=== PATIENT | female | born 1960 | race Caucasian/White ===

== ENCOUNTER 2016-12-15 09:25 | Outpatient (CLI) | payer BC ==
[2016-12-15] MEDS ORDERED: BARIUM SULFATE 176 GM BOTTLE PO ONE (10:58)
[2016-12-15] MEDS ORDERED: BARIUM SULFATE 135 ML BOTTLE PO ONE (10:58)
== END 2016-12-15 09:26 | disposition home or self-care (01) ==
DX: K44.9 Diaphragmatic hernia without obstruction or gangrene (principal); K21.9 Gastro-esophageal reflux disease without esophagitis
CPT/HCPCS: 74246; A9270

== ENCOUNTER 2018-05-31 08:17 | Outpatient (CLI) | payer OTHER ==
[2018-05-31 10:24] LABS: BASOPHILS % (AUTO) 0.4 %; EOSINOPHILS # (AUTO) 0.1 10^3/uL (0.0-0.7); EOSINOPHILS % (AUTO) 3.2 %; HGB - HEMOGLOBIN 14.5 g/dL (12.0-16.0); MEAN CORPUSCULAR HEMOGLOBIN 33.6 pg (27.0-31.0); MEAN CORPUSCULAR HGB CONC 34.4 g/dL (32.0-36.0); MEAN CORPUSCULAR VOLUME 97.8 fL (81.0-99.0); MEAN PLATELET VOLUME 8.5 fL (7.9-10.8); MONOCYTES # (AUTO) 0.4 10^3/uL (0.0-1.0); MONOCYTES % (AUTO) 9.6 %; NEUTROPHILS # (AUTO) 2.6 10^3/uL (1.5-6.6); NEUTROPHILS % (AUTO) 62.8 %; PLT - PLATELET COUNT 201 10^3/uL (130-450); RED BLOOD COUNT 4.31 10^6/uL (4.20-5.40); RED CELL DISTRIBUTION WIDTH 13.2 % (12.0-15.0); WHITE BLOOD COUNT 4.1 x10^3/uL (4.8-10.8)
[2018-05-31 10:52] LABS: ALBUMIN 4.1 g/dL (3.2-5.5); ALBUMIN/GLOBULIN RATIO 1.4 (1.0-2.2); ALKALINE PHOSPHATASE 79 IU/L (42-121); ALT ALANINE AMINOTRANSFERASE 34 IU/L (10-60); AST ASPARTATE AMINOTRANSFERASE 29 IU/L (10-42); BUN - BLOOD UREA NITROGEN 14 mg/dL (6-20); CALCIUM 8.9 mg/dL (8.5-10.3); CARBON DIOXIDE - CO2 28 mmol/L (21-32); CHLORIDE 100 mmol/L (101-111); CHOLESTEROL 196 mg/dL; CREATININE 0.7 mg/dL (0.4-1.0); GFR - MDRD 86 (>89); GLUCOSE 109 mg/dL (70-100); HDL CHOLESTEROL 65 mg/dL; LDL CHOLESTEROL,CALCULATED 107 mg/dL; LDL/HDL RATIO 1.6 (<4.4); SODIUM 136 mmol/L (135-145); TOTAL PROTEIN 7.1 g/dL (6.7-8.2); VLDL CHOLESTEROL 24 mg/dL
== END 2018-05-31 08:18 | disposition home or self-care (01) ==
LOC: LAB.F 08:17
PROVIDERS: ATTEND Nurse Practitioner Family
DX: Z00.00 Encounter for general adult medical examination without abnormal findings (principal); E55.9 Vitamin D deficiency, unspecified; E78.5 Hyperlipidemia, unspecified
CPT/HCPCS: 36415; 80053; 80061; 82306; 82728; 83721; 85025

== ENCOUNTER 2018-06-05 09:10 | Outpatient (CLI) | payer OTHER ==
[2018-06-05 18:26] LABS: T4 (THYROXINE) 8.59 ug/dL (6.09-12.23)
[2018-06-05 18:29] LABS: THYROID STIMULATING HORMONE 2.01 uIU/mL (0.34-5.60)
[2018-06-05 18:31] LABS: FREE T4 (FREE THYROXINE) 0.73 ng/dL (0.58-1.64)
[2018-06-05 18:56] LABS: FOLLICLE STIMULATING HORMONE 132.39 mIU/mL
== END 2018-06-05 09:11 | disposition home or self-care (01) ==
LOC: LAB.F 09:10
PROVIDERS: ATTEND Nurse Practitioner Family
DX: N95.1 Menopausal and female climacteric states (principal)
CPT/HCPCS: 36415; 83001; 84436; 84439; 84443; 84481

== ENCOUNTER 2018-07-19 13:28 | Outpatient (CLI) | payer OTHER ==
--- NOTE | 2018-07-20 09:22 | Mammography Report ---
Reason: SCREENING MAMMOGRAM Procedure Date: 07/19/2018 Accession Number: [id number] / [id number] Procedure: MGS - Screening Mammo Dig w/Implants CPT Code: FULL RESULT: EXAM: Screening Mammo Dig w/Implants DATE: 07/19/2018 1:49 PM CLINICAL HISTORY: SCREENING MAMMOGRAM TECHNIQUE: Bilateral digital CC and MLO projections with additional plan displaced views. COMPARISON: 11/28/2014 FINDINGS: The breast tissue is heterogeneously dense. There is no dominant mass, architectural distortion, skin thickening, suspicious microcalcifications, or significant interval change. Bilateral subpectoral saline implants are stable. IMPRESSION: 1. Negative examination 2. Suggest follow-up routine screening in 12 months. 3. BI-RADS 1: Negative
== END 2018-07-19 13:29 | disposition home or self-care (01) ==
LOC: DI.S 13:28
PROVIDERS: ATTEND Nurse Practitioner Family
DX: Z12.31 Encounter for screening mammogram for malignant neoplasm of breast (principal)
CPT/HCPCS: 77067

== ENCOUNTER 2018-10-26 08:50 | Outpatient (CLI) | payer OTHER ==
--- NOTE | 2018-10-26 14:50 | Ultrasound Report ---
Reason: CHRONIC PAIN IN CENTRAL ABDOMEN Procedure Date: 10/26/2018 Accession Number: [id number] / [id number] Procedure: US - Abdomen Complete CPT Code: FULL RESULT: EXAM: ABDOMEN ULTRASOUND EXAM DATE: 10/26/2018 09:56 AM. CLINICAL HISTORY: Chronic pain in central abdomen. COMPARISON: None. TECHNIQUE: Real-time scanning was performed with static images obtained. FINDINGS: Liver: Liver background parenchyma is heterogeneous and echogenic and demonstrates areas of regional hypoechogenicity. Some of these areas appear geographic suggestive of focal fatty sparing. One area near the left hepatic dome measuring 1.7 x 1.4 x 1.1 cm is well circumscribed and demonstrates apparent mass effect. The right lobe of the liver measures at least 12.4 cm. Main portal vein flow: Hepatopetal. Gallbladder: Normal. No stones, wall thickening, or sonographic Abdul's sign. Biliary System: Common bile duct measures 5 mm. No intrahepatic or extrahepatic ductal dilatation. Pancreas: Visualized portion is unremarkable. Kidneys: Right: 8.5 cm longitudinally. Normal. No contour-deforming mass, stones, or hydronephrosis. Left: 9.6 cm longitudinally. There is a nonobstructing 0.5 cm mid pole calculus. No contour-deforming mass, or hydronephrosis. Spleen: 9.6 cm. Normal in size and echotexture. Aorta and Inferior Vena Cava: Unremarkable. Other: None. IMPRESSION: Limited sensitivity for masses due to hepatic steatosis. Concern for possible 1.7 cm left hepatic mass. Recommend MRI or CT liver mass protocol. RADIA
== END 2018-10-26 08:51 | disposition home or self-care (01) ==
LOC: DI 08:50
PROVIDERS: ATTEND Nurse Practitioner Family
DX: K76.0 Fatty (change of) liver, not elsewhere classified (principal); R10.9 Unspecified abdominal pain
CPT/HCPCS: 76700

== ENCOUNTER 2018-11-15 08:52 | Outpatient (CLI) | payer OTHER ==
[2018-11-15] MEDS ORDERED: IOVERSOL 320 100 ML VIAL IVP ONE ×2 (09:18→14:31)
--- NOTE | 2018-11-15 12:20 | CT Report ---
Reason: OTHER SPECIFIED DISEASES OF LIVER,UNSPECIFIED ABDO Procedure Date: 11/15/2018 Accession Number: [id number] / [id number] Procedure: CT - Abdomen W/ CPT Code: FULL RESULT: EXAM: CT ABDOMEN EXAM DATE: 11/15/2018 09:38 AM. CLINICAL HISTORY: OTHER SPECIFIED DISEASES OF LIVER,UNSPECIFIED ABDO. PAIN. COMPARISON: None. TECHNIQUE: Multiphasic CT imaging was performed through the abdomen. IV contrast: OPTI 320 90mL Enteric contrast: No. Reconstruction: Coronal and sagittal. In accordance with CT protocol optimization, one or more of the following dose reduction techniques were utilized for this exam: automated exposure control, adjustment of mA and/or KV based on patient size, or use of iterative reconstructive technique. FINDINGS: Lung Bases: Small amount of atelectasis/scarring. No suspicious mass or effusions. Liver: Mildly low attenuation appearance diffusely. No arterially enhancing lesions are visualized. Subcentimeter hypoattenuating lesion within the left lobe anteriorly subcapsular measuring approximate 9 mm (image 11, series 3). This demonstrates no definitive enhancement on venous or delayed imaging. A second hypoattenuating subcentimeter lesion is present within the right lobe inferiorly and posteriorly measuring approximately 9 mm (image 25, series 3). This demonstrates no definitive arterial or venous enhancement, although possible small amount of peripheral discontinuous nodular enhancement upon delayed imaging. No other liver mass identified. Gallbladder/Bile Ducts: Unremarkable. Spleen: Normal. Pancreas: Normal. Adrenal Glands: Normal. Kidneys: Normal. No masses or hydronephrosis. Peritoneal Cavity/Bowel: No evidence of bowel obstruction. No free air. No discrete collection. No bulky adenopathy. Small amount of fatty change within the visualized colon. Vasculature: No aneurysms or other significant abnormality. Bones: No significant abnormality. Other: None. IMPRESSION: 1. Mild diffuse hepatic steatosis. 2. Two, subcentimeter hypoattenuating lesions within the liver, as described. These are too small to accurately characterize, although appearance is suspicious for small cysts or hemangioma. No other suspicious masses are visualized. 3. Partially visualized colon with mild amount of fatty change within the colonic wall. This may represent chronic change associated with inflammatory bowel disease or may be related to body habitus. RADIA
== END 2018-11-15 08:53 | disposition home or self-care (01) ==
LOC: DI 08:52
PROVIDERS: ATTEND Nurse Practitioner Family
DX: K76.0 Fatty (change of) liver, not elsewhere classified (principal); K76.9 Liver disease, unspecified; R10.9 Unspecified abdominal pain
CPT/HCPCS: 74160; Q9967

== ENCOUNTER 2019-10-15 14:28 | Outpatient (CLI) | payer OTHER ==
[2019-10-15 17:10] LABS: BASOPHILS % (AUTO) 0.3 %; EOSINOPHILS # (AUTO) 0.2 10^3/uL (0.0-0.7); EOSINOPHILS % (AUTO) 2.1 %; HGB - HEMOGLOBIN 14.6 g/dL (12.0-16.0); LYMPHOCYTES # (AUTO) 1.6 10^3/uL (1.5-3.5); LYMPHOCYTES % (AUTO) 20.9 %; MEAN CORPUSCULAR HEMOGLOBIN 32.4 pg (27.0-31.0); MEAN CORPUSCULAR HGB CONC 32.6 g/dL (32.0-36.0); MEAN CORPUSCULAR VOLUME 99.6 fL (81.0-99.0); MEAN PLATELET VOLUME 10.3 fL (7.9-10.8); MONOCYTES # (AUTO) 0.5 10^3/uL (0.0-1.0); MONOCYTES % (AUTO) 6.6 %; NEUTROPHILS # (AUTO) 5.2 10^3/uL (1.5-6.6); NEUTROPHILS % (AUTO) 69.6 %; PLT - PLATELET COUNT 227 10^3/uL (130-450); RED CELL DISTRIBUTION WIDTH 12.4 % (12.0-15.0); WHITE BLOOD COUNT 7.5 x10^3/uL (4.8-10.8)
[2019-10-15 17:23] LABS: ALBUMIN 4.3 g/dL (3.2-5.5); ALBUMIN/GLOBULIN RATIO 1.4 (1.0-2.2); BILIRUBIN,TOTAL 0.4 mg/dL (0.2-1.0); CALCIUM 8.3 mg/dL (8.5-10.3); CREATININE 0.8 mg/dL (0.4-1.0); CRP HIGH SENSITIVITY 5.5 mg/L; TOTAL PROTEIN 7.4 g/dL (6.7-8.2)
[2019-10-15 17:35] LABS: THYROID STIMULATING HORMONE 1.48 uIU/mL (0.34-5.60)
== END 2019-10-15 14:29 | disposition home or self-care (01) ==
LOC: LAB.S 14:28
PROVIDERS: ATTEND Nurse Practitioner Family
DX: E55.9 Vitamin D deficiency, unspecified (principal); E78.5 Hyperlipidemia, unspecified; R53.83 Other fatigue
CPT/HCPCS: 36415; 80053; 84436; 84443; 84481; 85025; 85651; 86141; 86376; 86800

== ENCOUNTER 2019-12-05 14:11 | Outpatient (CLI) | payer OTHER ==
[2019-12-05 17:25] LABS: BASOPHILS % (AUTO) 0.4 %; EOSINOPHILS # (AUTO) 0.1 10^3/uL (0.0-0.7); HGB - HEMOGLOBIN 14.6 g/dL (12.0-16.0); LYMPHOCYTES # (AUTO) 1.3 10^3/uL (1.5-3.5); LYMPHOCYTES % (AUTO) 23.8 %; MEAN CORPUSCULAR HEMOGLOBIN 33.5 pg (27.0-31.0); MEAN CORPUSCULAR HGB CONC 33.4 g/dL (32.0-36.0); MEAN CORPUSCULAR VOLUME 100.2 fL (81.0-99.0); MEAN PLATELET VOLUME 10.3 fL (7.9-10.8); MONOCYTES # (AUTO) 0.5 10^3/uL (0.0-1.0); MONOCYTES % (AUTO) 8.5 %; NEUTROPHILS # (AUTO) 3.7 10^3/uL (1.5-6.6); NEUTROPHILS % (AUTO) 64.9 %; PLT - PLATELET COUNT 238 10^3/uL (130-450); RED BLOOD COUNT 4.36 10^6/uL (4.20-5.40); WHITE BLOOD COUNT 5.6 x10^3/uL (4.8-10.8)
[2019-12-05 17:43] LABS: ALBUMIN 4.3 g/dL (3.2-5.5); ALBUMIN/GLOBULIN RATIO 1.4 (1.0-2.2); BILIRUBIN,TOTAL 0.6 mg/dL (0.2-1.0); CALCIUM 8.9 mg/dL (8.5-10.3); CREATININE 0.7 mg/dL (0.4-1.0); CRP HIGH SENSITIVITY 13.3 mg/L; TOTAL PROTEIN 7.4 g/dL (6.7-8.2)
[2019-12-05 17:56] LABS: T4 (THYROXINE) 8.37 ug/dL (6.09-12.23)
[2019-12-05 17:59] LABS: THYROID STIMULATING HORMONE 1.41 uIU/mL (0.34-5.60)
[2019-12-05 18:01] LABS: FREE T4 (FREE THYROXINE) 0.84 ng/dL (0.58-1.64)
[2019-12-08 16:24] LABS: INTRINSIC FACTOR BLOCKING AB NEGATIVE
[2019-12-09 16:45] LABS: METHYLMALONIC ACID 199 nmol/L (87-318)
== END 2019-12-05 14:12 | disposition home or self-care (01) ==
LOC: LAB.S 14:11
PROVIDERS: ATTEND Nurse Practitioner Family
DX: E87.6 Hypokalemia (principal); E83.51 Hypocalcemia; Z79.899 Other long term (current) drug therapy; R53.83 Other fatigue; E03.2 Hypothyroidism due to medicaments and other exogenous substances
CPT/HCPCS: 36415; 80053; 82607; 83921; 84436; 84439; 84443; 84481; 85025; 86141; 86340; 86376

== ENCOUNTER 2020-01-23 11:54 | Outpatient (CLI) | payer OTHER ==
--- NOTE | 2020-01-23 15:53 | XRAY Report ---
Reason: L KNEE INNER JOINT PX AND SWELLING Procedure Date: 01/23/2020 Accession Number: [id number] / [id number] Procedure: XR - Knee 3 View LT CPT Code: Final Report FULL RESULT: EXAM: LEFT KNEE RADIOGRAPHY EXAM DATE: 01/23/2020 12:10 PM. CLINICAL HISTORY: Left knee inner joint pain and swelling. COMPARISON: None. TECHNIQUE: 3 views. FINDINGS: Mild narrowing of the knee joint space. Mild osteophytic spurring at the articulations of the tibial plateau with the femoral condyles. Borderline high riding patella, with moderate narrowing of the patellofemoral articulation. Osteophytic spurring at the cephalad aspect of the patella. No significant suprapatellar joint effusion. No fracture or subluxation identified. IMPRESSION: Mild to moderate degenerative changes at the left knee. RADIA
== END 2020-01-23 11:55 | disposition home or self-care (01) ==
LOC: DI 11:54
PROVIDERS: ATTEND Nurse Practitioner Family
DX: M17.12 Unilateral primary osteoarthritis, left knee (principal)

== ENCOUNTER 2020-04-16 16:50 | Outpatient (CLI) | payer OTHER ==
[2020-04-16 17:25] LABS: BASOPHILS % (AUTO) 0.3 %; EOSINOPHILS # (AUTO) 0.1 10^3/uL (0.0-0.7); EOSINOPHILS % (AUTO) 1.4 %; HGB - HEMOGLOBIN 13.9 g/dL (12.0-16.0); LYMPHOCYTES # (AUTO) 1.2 10^3/uL (1.5-3.5); LYMPHOCYTES % (AUTO) 17.5 %; MEAN CORPUSCULAR HEMOGLOBIN 35.3 pg (27.0-31.0); MEAN CORPUSCULAR HGB CONC 34.4 g/dL (32.0-36.0); MEAN CORPUSCULAR VOLUME 102.5 fL (81.0-99.0); MEAN PLATELET VOLUME 9.3 fL (7.9-10.8); MONOCYTES # (AUTO) 0.6 10^3/uL (0.0-1.0); MONOCYTES % (AUTO) 8.2 %; PLT - PLATELET COUNT 199 10^3/uL (130-450); RED BLOOD COUNT 3.94 10^6/uL (4.20-5.40); RED CELL DISTRIBUTION WIDTH 13.1 % (12.0-15.0); WHITE BLOOD COUNT 6.9 x10^3/uL (4.8-10.8)
[2020-04-16 17:35] LABS: ALBUMIN 4.3 g/dL (3.2-5.5); ALBUMIN/GLOBULIN RATIO 1.3 (1.0-2.2); BILIRUBIN,TOTAL 0.7 mg/dL (0.2-1.0); CALCIUM 9.1 mg/dL (8.5-10.3); CREATININE 0.9 mg/dL (0.4-1.0); TOTAL PROTEIN 7.5 g/dL (6.7-8.2)
== END 2020-04-16 16:51 | disposition home or self-care (01) ==
LOC: LAB 16:50
PROVIDERS: ATTEND Nurse Practitioner Family
DX: R22.43 Localized swelling, mass and lump, lower limb, bilateral (principal)
CPT/HCPCS: 36415; 80053; 85025; 85379

== ENCOUNTER 2020-04-16 18:44 | Emergency (ER) | payer OTHER ==
--- NOTE | 2020-04-16 19:19 | ED Physician Documentation ---
History of Present Illness - Stated complaint Stated Complaint: ABNORMAL LABS - Chief complaint Chief Complaint: Ext Problem - History obtained from History obtained from: Patient - History of Present Illness Timing: How many days ago (3) Pain level now: 1 Improved by: rest Worsened by: palpation - Additonal information Additional information: had painful spasm left calf 3 days ago, with subsequent swelling that evening and progressing since then. She has swelling distal to left knee with calf pain/tenderness. Denies chest pain/dyspnea. She saw her accupuncturist who voiced concern regarding the swelling of the left calf, and thus patient then had outpatient lab tests ordered by PMD. PMD's office contacted patient this evening and directed her to come to ED due to elevated d-dimer. Review of Systems Constitutional: denies: Fever, Chills, Sweats Cardiac: reports: Pedal edema. denies: Chest pain / pressure, Palpitations, Calf pain Respiratory: reports: Reviewed and negative GI: reports: Reviewed and negative Musculoskeletal: reports: Extremity pain, Extremity swelling PD PAST MEDICAL HISTORY - Past Medical History Past Medical History: No - Past Surgical History Past Surgical History: No - Social History Does the pt smoke?: No PD ED PE NORMAL - Vitals Vital signs reviewed: Yes - General General: Alert and oriented X 3, No acute distress, Well developed/nourished - Cardiac Cardiac: RRR, No murmur, No gallop, No rub - Respiratory Respiratory: No respiratory distress, Clear bilaterally - Derm Derm: Normal color, Warm and dry, No rash - Extremities Extremities: Normal ROM s pain PD ED PE EXPANDED - Extremities Extremities: Tenderness ((+) Mychal's sign), Pedal Pulses Present GABI LE visual: 1 - swelling (1+ distal to knee) Results - Vitals Vitals: Vital Signs - 24 hr 04/16/20 04/16/20 18:52 21:08 Temperature 36.8 C Heart Rate 102 H 67 Respiratory 18 14 Rate Blood Pressure 183/88 H 142/78 H O2 Saturation 98 98 Oxygen O2 Source Room air - Labs Labs: Laboratory Tests 04/16/20 19:42 PT 11.2 INR 1.0 APTT 30.8 - Rads (name of study) LLE US Radiology: Prelim report reviewed, See rad report CT chest w/ IV contrast (PE study) Radiology: Prelim report reviewed, See rad report PD MEDICAL DECISION MAKING - ED course Complexity details: reviewed results, re-evaluated patient, considered differential, d/w patient Departure - Departure Disposition: 01 Home, Self Care Clinical Impression: Peripheral edema Condition: Good Instructions: ED Cyst Awad, ED Leg Swelling Unilateral Follow-Up: Cl Burton ARNP [Primary Care Provider] - Discharge Date/Time: 04/16/20 21:42
[2020-04-16] MEDS ORDERED: IOVERSOL 320 100 ML VIAL IVP ONE ×2 (19:50→20:21)
[2020-04-16 19:56] LABS: PT - PROTHROMBIN TIME 11.2 secs (9.9-12.6)
[2020-04-16 20:03] LABS: PARTIAL THROMBOPLASTIN TIME 30.8 secs (24.9-33.3)
--- NOTE | 2020-04-16 20:41 | CT Report ---
PROCEDURE: ANGIO CHEST W/WO INDICATIONS: LLE swelling CONTRAST: IV CONTRAST: Optiray 320 ml: 48 PO CONTRAST: *NO PO CONTRAST TECHNIQUE: After the administration of intravenous contrast, 2 mm thick sections acquired from the pulmonary api brennon to the posterior costophrenic angles. 3-dimensional maximum intensity projection (MIP) coronal a nd sagittal reformats were then acquired through the thorax. For radiation dose reduction, the follow ing was used: automated exposure control, adjustment of mA and/or kV according to patient size. COMPARISON: None FINDINGS: Image quality: Good. Pulmonary arteries: Pulmonary arteries are normal in size, and demonstrate no intraluminal filling d efects to suggest central pulmonary embolism. Lungs and pleura: No focal consolidation. Subpleural nodule in the left lower lobe on series 5 image 62 measuring approximately 5 mm. Additional subpleural left lower lobe nodule on series 5 image 96 me asuring 2 mm. No pleural effusions or pneumothorax. Central and peripheral airways are patent. Mediastinum: Heart size is normal, without pericardial effusion. No mediastinal or hilar adenopathy . Thoracic aorta is normal in caliber and enhancement. Esophagus is normal in caliber, without hiat al hernia. Bones and chest wall: No suspicious bony lesions. Ribs and thoracic spine appear intact throughout. The thyroid is normal. No axillary or supraclavicular adenopathy. Abdomen: Visualized upper abdominal solid organs appear normal in the early arterial phase of enhanc ement. IMPRESSION: No findings of pulmonary embolus or other acute finding in the chest. Reviewed by: Lam Raymundo MD on 04/16/2020 8:39 PM PDT Approved by: Lam Raymundo MD on 04/16/2020 8:39 PM PDT Station ID: [id number]
[2020-04-16 21:10] VITALS: BP 142/78
--- NOTE | 2020-04-16 21:13 | Ultrasound Report ---
PROCEDURE: Duplex Ext Veins Left INDICATIONS: LLE swelling TECHNIQUE: Real-time imaging, as well as color and pulse Doppler interrogation, were performed of the lower extr emity deep veins from the inguinal ligament to the popliteal fossa. COMPARISON: None. FINDINGS: The deep veins are normally compressible, and free of intraluminal thrombus. Color and pu lse Doppler demonstrate normal phasic intraluminal flow. There is normal augmentation response to di stal compression maneuver. Complex fluid collection in the popliteal fossa medially extending to the mid calf. IMPRESSION: No evidence of deep venous thrombosis. Complex fluid collection in the medial popliteal fossa. This would be consistent with a Awad's cyst. If confirmation needed, MRI would be recommended . Reviewed by: Lam Raymundo MD on 04/16/2020 9:11 PM PDT Approved by: Lam Raymundo MD on 04/16/2020 9:11 PM PDT Station ID: [id number]
== END 2020-04-16 21:42 | disposition home or self-care (01) ==
LOC: ED 18:44
DX: R60.0 Localized edema (principal); M79.662 Pain in left lower leg; R22.43 Localized swelling, mass and lump, lower limb, bilateral
CPT/HCPCS: 36415; 71275; 80053; 85025; 85379; 85610; 85730; 93971; 99284; Q9967

== ENCOUNTER 2021-07-22 08:00 | Outpatient (CLI) | payer OTHER ==
[2021-07-22 19:21] LABS: H. PYLORIS ANTIGEN STL NEGATIVE (Negative)
== END 2021-07-22 23:59 | disposition home or self-care (01) ==
LOC: LAB.R 08:00
PROVIDERS: ATTEND Surgery
DX: K21.9 Gastro-esophageal reflux disease without esophagitis (principal); Z87.19 Personal history of other diseases of the digestive system
CPT/HCPCS: 87338

== ENCOUNTER 2021-08-11 09:20 | Outpatient (CLI) | payer BC ==
[2021-08-11 09:39] LABS: BASOPHILS % (AUTO) 0.4 %; EOSINOPHILS # (AUTO) 0.1 10^3/uL (0.0-0.7); HGB - HEMOGLOBIN 15.1 g/dL (12.0-16.0); LYMPHOCYTES % (AUTO) 18.7 %; MEAN CORPUSCULAR HEMOGLOBIN 34.9 pg (27.0-31.0); MEAN CORPUSCULAR HGB CONC 33.6 g/dL (32.0-36.0); MEAN CORPUSCULAR VOLUME 103.9 fL (81.0-99.0); MEAN PLATELET VOLUME 9.8 fL (7.9-10.8); MONOCYTES # (AUTO) 0.5 10^3/uL (0.0-1.0); MONOCYTES % (AUTO) 8.3 %; NEUTROPHILS # (AUTO) 3.9 10^3/uL (1.5-6.6); NEUTROPHILS % (AUTO) 70.2 %; PLT - PLATELET COUNT 220 10^3/uL (130-450); RED BLOOD COUNT 4.33 10^6/uL (4.20-5.40); RED CELL DISTRIBUTION WIDTH 12.5 % (12.0-15.0); WHITE BLOOD COUNT 5.6 x10^3/uL (4.8-10.8)
[2021-08-11 10:05] LABS: ALBUMIN 4.2 g/dL (3.2-5.5); ALBUMIN/GLOBULIN RATIO 1.4 (1.0-2.2); ALKALINE PHOSPHATASE 65 IU/L (42-121); ALT ALANINE AMINOTRANSFERASE 30 IU/L (10-60); AST ASPARTATE AMINOTRANSFERASE 22 IU/L (10-42); BILIRUBIN,TOTAL 0.8 mg/dL (0.2-1.0); BUN - BLOOD UREA NITROGEN 21 mg/dL (6-20); CALCIUM 9.2 mg/dL (8.5-10.3); CARBON DIOXIDE - CO2 30 mmol/L (21-32); CHLORIDE 102 mmol/L (101-111); CHOL/HDL RATIO 2.9 (<4.4); CHOLESTEROL 203 mg/dL; CREATININE 0.8 mg/dL (0.4-1.0); GFR - MDRD 73 (>89); GLUCOSE 112 mg/dL (70-100); HDL CHOLESTEROL 71 mg/dL; LDL CHOLESTEROL,CALCULATED 116 mg/dL; LDL/HDL RATIO 1.6 (<4.4); POTASSIUM 4.3 mmol/L (3.5-5.0); SODIUM 141 mmol/L (135-145); TOTAL PROTEIN 7.1 g/dL (6.7-8.2); TRIGLYCERIDES 80 mg/dL; VLDL CHOLESTEROL 16 mg/dL
[2021-08-11 10:16] LABS: THYROID STIMULATING HORMONE 2.07 uIU/mL (0.34-5.60)
== END 2021-08-11 09:21 | disposition home or self-care (01) ==
LOC: LAB 09:20
PROVIDERS: ATTEND Registered Nurse
DX: N95.9 Unspecified menopausal and perimenopausal disorder (principal); K21.9 Gastro-esophageal reflux disease without esophagitis; R10.13 Epigastric pain; J45.909 Unspecified asthma, uncomplicated; K57.30 Diverticulosis of large intestine without perforation or abscess without bleeding
CPT/HCPCS: 36415; 80053; 80061; 82306; 83721; 84443; 85025

== ENCOUNTER 2022-02-17 11:30 | Outpatient (CLI) | payer BC ==
--- NOTE | 2022-02-17 12:53 | XRAY Report ---
PROCEDURE: Sacrum/Coccyx INDICATIONS: XRAY TECHNIQUE: 3 views of the sacrum and coccyx acquired. COMPARISON: None FINDINGS: Bones: Nondisplaced fracture of S5. No suspicious bony lesions. Soft tissues: Visualized bowel gas pattern is normal. No suspicious soft tissue densities. IMPRESSION: Nondisplaced fracture of S5. Reviewed by: Giovanny Castillo on 02/17/2022 12:52 PM PDT Approved by: Giovanny Castillo on 02/17/2022 12:52 PM PDT Station ID: [id number]
== END 2022-02-17 23:59 | disposition home or self-care (01) ==
LOC: CANPRECLI → DI.S 11:30
PROVIDERS: ATTEND Chiropractor Neurology
DX: S32.10XA Unspecified fracture of sacrum, initial encounter for closed fracture (principal)

== ENCOUNTER 2023-12-20 18:57 | Outpatient (CLI) | payer BC ==
[2023-12-20 19:33] LABS: BASOPHILS % (AUTO) 0.4 %; EOSINOPHILS % (AUTO) 0.7 %; HCT - HEMATOCRIT 40.9 % (37.0-47.0); HGB - HEMOGLOBIN 13.5 g/dL (12.0-16.0); LYMPHOCYTES # (AUTO) 0.9 10^3/uL (1.5-3.5); LYMPHOCYTES % (AUTO) 15.7 %; MEAN CORPUSCULAR HEMOGLOBIN 33.5 pg (27.0-31.0); MEAN CORPUSCULAR VOLUME 101.5 fL (81.0-99.0); MEAN PLATELET VOLUME 9.8 fL (7.9-10.8); MONOCYTES # (AUTO) 0.4 10^3/uL (0.0-1.0); MONOCYTES % (AUTO) 6.2 %; NEUTROPHILS # (AUTO) 4.4 10^3/uL (1.5-6.6); NEUTROPHILS % (AUTO) 76.6 %; PLT - PLATELET COUNT 210 10^3/uL (130-450); RED BLOOD COUNT 4.03 10^6/uL (4.20-5.40); WHITE BLOOD COUNT 5.7 x10^3/uL (4.8-10.8)
[2023-12-20 19:53] LABS: ALBUMIN 4.4 g/dL (3.2-5.5); ALBUMIN/GLOBULIN RATIO 1.8 (1.0-2.2); BILIRUBIN,TOTAL 0.3 mg/dL (0.2-1.0); CALCIUM 9.8 mg/dL (8.5-10.3); CREATININE 0.8 mg/dL (0.6-1.3); POTASSIUM 4.2 mmol/L (3.5-4.5); TOTAL PROTEIN 6.9 g/dL (6.4-8.9)
[2023-12-20 20:14] LABS: THYROID STIMULATING HORMONE 0.82 uIU/mL (0.34-5.60)
[2023-12-20 20:30] LABS: ESTIMATED AVERAGE GLUCOSE 108 mg/dL (70-100); HEMOGLOBIN A1c% 5.4 % (4.27-6.07)
== END 2023-12-20 18:58 | disposition home or self-care (01) ==
LOC: LAB 18:57
PROVIDERS: ATTEND Registered Nurse
DX: R03.0 Elevated blood-pressure reading, without diagnosis of hypertension (principal); R42 Dizziness and giddiness; R23.2 Flushing
CPT/HCPCS: 36415; 80053; 82088; 83036; 84244; 84443; 85025; 87077; 87086

== ENCOUNTER 2023-12-22 07:00 | Outpatient (CLI) | payer BC | END 2023-12-22 23:59 | disposition home or self-care (01) | LOC: LAB.S 07:00 | PROVIDERS: ATTEND Registered Nurse | DX: R03.0 Elevated blood-pressure reading, without diagnosis of hypertension (principal); R42 Dizziness and giddiness; R23.2 Flushing | CPT/HCPCS: 81599; 82384; 82570; 83835 ==

== ENCOUNTER 2023-12-28 11:52 | Outpatient (CLI) | payer BC | END 2023-12-28 11:53 | disposition home or self-care (01) | LOC: LAB.R 11:52 | PROVIDERS: ATTEND Registered Nurse | DX: R03.0 Elevated blood-pressure reading, without diagnosis of hypertension (principal); R42 Dizziness and giddiness; R23.2 Flushing | CPT/HCPCS: 83497 ==

== ENCOUNTER 2024-01-02 09:39 | Outpatient (CLI) | payer BC ==
--- NOTE | 2024-01-03 10:09 | Mammography Report ---
BILATERAL DIGITAL SCREENING MAMMOGRAM 3D/2D WITH AUGMENTATION: 01/02/2024 CLINICAL: Routine screening. Family history of breast cancer. Comparison is made to exams dated: 07/19/2018 mammogram and 11/28/2014 mammogram - [facility]. Both breasts are heterogeneously dense, which may obscure small masses (category c / 51-75% glandular tissue). Bilateral retropectoral saline implants are intact. There is a possible focal asymmetry in the right breast at 10 o'clock middle depth. No other significant masses, calcifications, or other findings are seen in either breast. IMPRESSION: INCOMPLETE: NEEDS ADDITIONAL IMAGING EVALUATION The possible focal asymmetry in the right breast is indeterminate. Additional views with possible ul trasound are recommended. Based on the Tyrer Cuzick model (a risk assessment model) the patient's lifetime risk is 19.4% and he r 10 year risk is 8.7%. According to the ACR, ACS, and NCCN guidelines, an annual breast MRI exam sidra ng with mammogram is recommended if the patient's lifetime risk is 20% or greater. This exam was interpreted at Station ID: [id number]. NOTE: For mammograms, a report in lay terms will be sent to the patient. Approximately 15% of breast malignancies will not be visualized mammographically. In the management of a palpable breast mass, a negative mammogram must not discourage biopsy of a clinically suspicious lesion. Electronically Signed By: Mitesh lawton/parth:01/02/2024 13:53:45 ACR BI-RADS Category 0: Incomplete 3340F PARENCHYMAL PATTERN: (D) - The breast(s) demonstrate(s) heterogeneously dense fibroglandular bailey cowan. BI-RADS CATEGORY: (0) - 0 Mammo and [place] [id number] Immediate follow-up LATERALITY: (R)
== END 2024-01-02 09:40 | disposition home or self-care (01) ==
LOC: DI 09:39
PROVIDERS: ATTEND Registered Nurse
DX: Z12.31 Encounter for screening mammogram for malignant neoplasm of breast (principal); R92.8 Other abnormal and inconclusive findings on diagnostic imaging of breast; R92.333 Mammographic heterogeneous density, bilateral breasts; Z80.3 Family history of malignant neoplasm of breast

== ENCOUNTER 2024-02-02 11:06 | Outpatient (CLI) | payer BC ==
--- NOTE | 2024-02-05 07:34 | Mammography Report ---
UNILATERAL RIGHT DIGITAL DIAGNOSTIC MAMMOGRAM 3D/2D WITH SPOT COMPRESSION WITH AUGMENTATION: 02/02/2024 CLINICAL: Patient returns today to evaluate a focal asymmetry in the right breast. Comparison is made to exams dated: 07/19/2018 mammogram, 01/02/2024 mammogram, and 11/28/2014 mammogram - [facility]. The right breast is heterogeneously dense, which may obscure small masses (category c / 51-75% glandu lar tissue). Right retropectoral saline implant is intact. There is a 0.5 cm focal asymmetry in the right breast at 10 o'clock middle depth. This is seen in ad ditional views. No other significant masses or calcifications are seen in the breast. IMPRESSION: INCOMPLETE: NEEDS ADDITIONAL IMAGING EVALUATION The 0.5 cm focal asymmetry in the right breast is indeterminate. An ultrasound is recommended. Based on the Tyrer Cuzick model (a risk assessment model) the patient's lifetime risk is 19.4% and he r 10 year risk is 8.7%. According to the ACR, ACS, and NCCN guidelines, an annual breast MRI exam sidra ng with mammogram is recommended if the patient's lifetime risk is 20% or greater. This exam was interpreted at Station ID: [id number]. NOTE: For mammograms, a report in lay terms will be sent to the patient. Approximately 15% of breast malignancies will not be visualized mammographically. In the management of a palpable breast mass, a negative mammogram must not discourage biopsy of a clinically suspicious lesion. Electronically Signed By: Gilmar Del Toro M.D. lc/:02/02/2024 12:19:39 ACR BI-RADS Category 0: Incomplete 3340F PARENCHYMAL PATTERN: (D) - The breast(s) demonstrate(s) heterogeneously dense fibroglandular pardelicia cowan. BI-RADS CATEGORY: (0) - 0 Ultrasound [id number] Immediate follow-up LATERALITY: (B)
--- NOTE | 2024-02-05 07:34 | Ultrasound Report ---
LIMITED ULTRASOUND OF RIGHT BREAST: 02/02/2024 CLINICAL: Patient returns today to evaluate a focal asymmetry in the right breast. Comparison is made to exams dated: 01/02/2024 mammogram, 07/19/2018 mammogram, and 11/28/2014 mammogram - [facility]. Color flow ultrasound of the right breast 9-11 o'clock region was performed. Hoffman scale images of th e real-time examination were reviewed. There is a benign 0.5 cm x 0.6 cm x 0.5 cm x 5 cm oval cyst in the right breast at 9 o'clock middle d epth. IMPRESSION: BENIGN There is no sonographic evidence of malignancy. The 0.5 cm x 0.6 cm x 0.5 cm x 5 cm oval cyst in the right breast is benign. This corresponds to a m ammographic focal asymmetry. Numerous other areas of focal asyemmtry favored to represent fibroglandular tissue are less prominent on today's additional views. Many other small oval circumscrbied masses on mammogram presumed to re present additional benign cysts. Return to annual mammogram screening schedule is recommended. This exam was interpreted at Station ID: [id number]. Electronically Signed By: Gilmar Del Toro M.D. lc/:02/02/2024 12:24:33 letter sent: No_Letter Ultrasound BI-RADS: 2 Benign BI-RADS CATEGORY: (2) - 2 Mammogram [id number] return to screening LATERALITY: (B)
== END 2024-02-02 11:07 | disposition home or self-care (01) ==
LOC: DI 11:06
PROVIDERS: ATTEND Registered Nurse
DX: N60.01 Solitary cyst of right breast (principal); R92.331 Mammographic heterogeneous density, right breast